=== PATIENT | female | born 1990 | race Caucasian/White ===

== ENCOUNTER 2021-07-20 10:26 | Emergency (ER) | payer SELFPAY ==
[~2021-07-20] VITALS: Ht 170.2 cm; Wt 69.7 kg
[2021-07-20] MEDS ORDERED: PEPT262T2 PO (10:36)
[2021-07-20 12:28] LABS: BASO % 0.7 % (0.0-1.0); EOS # 0.4 10^3/uL (0.0-0.5); EOS % 6.1 % (0.0-3.0); HEMATOCRIT 40.8 % (36.0-47.0); HEMOGLOBIN 13.2 g/dl (12.0-15.5); LYMPH # 1.5 10^3/uL (1.5-5.0); MEAN CORPUSCULAR HEMOGLOBIN 29.5 pg (27.0-33.0); MEAN CORPUSCULAR HGB CONC 32.4 g/dl (32.0-36.5); MEAN CORPUSCULAR VOLUME 91.1 fl (80.0-96.0); MONO # 0.6 10^3/uL (0.0-0.8); MONO % 9.5 % (2.0-8.0); NEUTROPHILS # 3.5 10^3/uL (1.5-8.5); NEUTROPHILS % 58.4 % (36.0-66.0); PLATELET COUNT, AUTOMATED 244 10^3/uL (150-450); RED BLOOD COUNT 4.48 10^6/uL (4.00-5.40)
[2021-07-20] MEDS ORDERED: PANTOPRAZOLE 40MG VIAL (C9113 PER 1) IV ONE (13:05)
[2021-07-20] MEDS ORDERED: NS 1,000 ML IV ONE (13:05)
[2021-07-20 13:06] LABS: ALBUMIN 3.7 GM/DL (3.2-5.2); ALT/SGPT 40 U/L (12-78); BILIRUBIN,DIRECT 0.1 MG/DL (0.0-0.2); BILIRUBIN,TOTAL 0.4 MG/DL (0.2-1.0); LIPASE 69 U/L (73-393); TOTAL PROTEIN 6.8 GM/DL (6.4-8.2)
[2021-07-20] MEDS ORDERED: ISOVUE-370 76% 100ML VIAL As Ordered ONE (13:09)
[2021-07-20 13:21] LABS: HCG, SERUM QUALITATIVE NEGATIVE (NEGATIVE)
[2021-07-20] MEDS ORDERED: cefTRIAXone SOD 500 MG in D5W MINI-BAG PLUS 50 ML IV ONE (15:10)
[2021-07-20 15:53] LABS: GC DNA AMPLIFICATION NEGATIVE (NEGATIVE)
[2021-07-20] MEDS ORDERED: KETOROLAC TROMETHAMINE 10 MG TAB PO ONE (15:55)
[2021-07-20] MEDS ORDERED: DOXYCYCLINE HYCLATE 100MG TABLET PO ONE (16:00)
[2021-07-20] MEDS ORDERED: DOXY-443 PO (16:10)
[2021-07-20 17:19] VITALS: BP 120/85
== END 2021-07-20 17:21 | disposition home or self-care (01) ==
LOC: M ED 10:26
DX: N73.9 Female pelvic inflammatory disease, unspecified (principal); R10.9 Unspecified abdominal pain; R11.0 Nausea; R19.7 Diarrhea, unspecified; F17.200 Nicotine dependence, unspecified, uncomplicated; Z88.2 Allergy status to sulfonamides
CPT/HCPCS: 36415; 74177; 80047; 80076; 81001; 83690; 84702; 84703; 85025; 87210; 87804; 87808; 87810; 87850; 96361; 96365; 96375; 99284; C9113; J0696; Q9967

== ENCOUNTER → 2022-04-20 | Outpatient (REF) | payer OTHER, SELFPAY ==
[~2022-04-20] MED LIST: DOXY-443 PO; PEPT262T2 PO
[2022-04-20 18:37] LABS: ALBUMIN 3.5 GM/DL (3.2-5.2); ALKALINE PHOSPHATASE 97 U/L (45-117); ALT/SGPT 17 U/L (12-78); AST/SGOT 10 U/L (7-37); BILIRUBIN,TOTAL 0.3 MG/DL (0.2-1.0); BLOOD UREA NITROGEN 14 MG/DL (7-18); CALCIUM LEVEL 9.1 MG/DL (8.5-10.1); CARBON DIOXIDE LEVEL 28 MEQ/L (21-32); CHLORIDE LEVEL 107 MEQ/L (98-107); CHOLESTEROL LEVEL 171 MG/DL (<200); CHOLESTEROL RISK RATIO 3.226 (<5); GLOMERULAR FILTRATION RATE > 60.0 (>60); GLUCOSE, FASTING 99 MG/DL (70-100); HDL CHOLESTEROL 53 MG/DL (>40); LDL CHOLESTEROL 95 MG/DL (<100); NON-HDL-C 118 MG/DL; POTASSIUM SERUM 5.4 MEQ/L (3.5-5.1); SODIUM LEVEL 138 MEQ/L (136-145); TOTAL PROTEIN 7.3 GM/DL (6.4-8.2); TRIGLYCERIDES LEVEL 115 MG/DL (<150)
[2022-04-20 21:18] LABS: HEMOGLOBIN A1c 5.6 %
[2022-04-23 09:42] LABS: TOTAL 25(OH) VITAMIN D 27.6 NG/ML (30.0-100.0)
== END ==
LOC: M LAB REF 16:17
PROVIDERS: ATTEND Nurse Practitioner Family
DX: Z13.228 Encounter for screening for other metabolic disorders (principal)

== ENCOUNTER → 2022-06-14 | Outpatient (REF) | payer OTHER ==
[2022-06-14 14:09] LABS: BASO % 0.7 % (0.0-1.0); EOS # 0.1 10^3/uL (0.0-0.5); EOS % 2.8 % (0.0-3.0); HEMATOCRIT 42.4 % (36.0-47.0); HEMOGLOBIN 13.8 g/dl (12.0-15.5); LYMPH # 1.8 10^3/uL (1.5-5.0); LYMPH % 41.1 % (24.0-44.0); MEAN CORPUSCULAR HEMOGLOBIN 28.3 pg (27.0-33.0); MEAN CORPUSCULAR HGB CONC 32.5 g/dl (32.0-36.5); MEAN CORPUSCULAR VOLUME 87.1 fl (80.0-96.0); MONO # 0.5 10^3/uL (0.0-0.8); MONO % 10.9 % (2.0-8.0); NEUTROPHILS # 1.9 10^3/uL (1.5-8.5); NEUTROPHILS % 44.3 % (36.0-66.0); PLATELET COUNT, AUTOMATED 269 10^3/uL (150-450); RED BLOOD COUNT 4.87 10^6/uL (4.00-5.40); WHITE BLOOD COUNT 4.3 10^3/uL (4.0-10.0)
[2022-06-14 14:25] LABS: BLOOD UREA NITROGEN 16 MG/DL (9-23); CALCIUM LEVEL 9.1 MG/DL (8.5-10.1); CARBON DIOXIDE LEVEL 26 MMOL/L (20-31); CHLORIDE LEVEL 107 MMOL/L (98-107); CREATININE FOR GFR 0.77 MG/DL (0.55-1.30); GLOMERULAR FILTRATION RATE > 60.0 (>60); GLUCOSE, FASTING 97 MG/DL (60-100); IRON (FE) 90 UG/DL (50-170); PERCENT SATURATION 24.7 % (13.2-45.0); POTASSIUM SERUM 4.8 MMOL/L (3.5-5.1); SODIUM LEVEL 139 MMOL/L (136-145); TOTAL IRON BINDING CAPACITY 364 UG/DL (250-425)
[2022-06-14 14:27] LABS: FOLATE > 24.0 NG/ML (>5.4); VITAMIN B12 LEVEL 369 PG/ML (211-911)
[2022-06-14 14:28] LABS: FERRITIN 16.2 NG/ML (7.3-270.7)
[2022-06-14 14:58] LABS: HIV 1&2 SCREEN CENTAUR NEGATIVE (NEGATIVE)
[2022-06-14 15:06] LABS: HEPATITIS C VIRUS ABY INDEX 0.1 INDEX (<0.8)
== END ==
LOC: M LAB REF 12:48
PROVIDERS: ATTEND Nurse Practitioner Family
DX: R25.2 Cramp and spasm (principal); R20.2 Paresthesia of skin; Z11.9 Encounter for screening for infectious and parasitic diseases, unspecified

== ENCOUNTER → 2022-09-28 | Outpatient (CLI) | payer OTHER | LOC: M RAD 10:07 | PROVIDERS: ATTEND Nurse Practitioner Family | DX: M54.50 Low back pain, unspecified (principal) ==

== ENCOUNTER → 2022-10-26 | Outpatient (CLI) | payer OTHER ==
[~2022-10-26] MED LIST changes: +PROHANCE 279.3MG/ML 15ML VIAL ONE; +PROHANCE 279.3MG/ML 5ML VIAL ONE
== END ==
LOC: M PLAIMG 10:56
PROVIDERS: ATTEND Nurse Practitioner Family
DX: M54.59 Other low back pain (principal)
CPT/HCPCS: 72158; A9576